=== PATIENT | male | born 1960 | race African-American/Black ===

== ENCOUNTER 2017-02-19 21:46 | Emergency (ER) | payer BC ==
[~2017-02-19 21:46] MED LIST: ALLEGRA ALLERG180 MG PO; AMOXICILLIN875 MG PO; CLONIDINE PO; KETOPROFEN PO; LISINOPRIL20 MG PO
== END 2017-02-19 22:09 | disposition home or self-care (01) ==
LOC: CFTX 21:46
DX: S46.811A Strain of other muscles, fascia and tendons at shoulder and upper arm level, right arm, initial encounter (principal); I10 Essential (primary) hypertension; X50.9XXA Other and unspecified overexertion or strenuous movements or postures, initial encounter
CPT/HCPCS: 96372; 99283; J1885

== ENCOUNTER 2017-03-01 14:36 | Emergency (ER) | payer BC | END 2017-03-01 14:47 | disposition home or self-care (01) | LOC: CFTX 14:36 | DX: S46.811A Strain of other muscles, fascia and tendons at shoulder and upper arm level, right arm, initial encounter (principal); I10 Essential (primary) hypertension; Z88.8 Allergy status to other drugs, medicaments and biological substances; F17.210 Nicotine dependence, cigarettes, uncomplicated | CPT/HCPCS: 96372; 99283; J1885 ==